=== PATIENT | female | born 1980 | race Caucasian/White ===

== ENCOUNTER → 2023-07-22 | Outpatient (CLI) | payer OTHER, SELFPAY ==
--- NOTE | 2023-07-22 09:56 | STEWCON_ITS ---
Reason For Study: CHEST PAIN, PALPS Stress Results Protocol: Hang Protocol WITH DEFINITY Maximum Predicted HR: 179 bpm Target HR: 152 bpm % Maximum Predicted HR: 94 % DurationHeart Rate Stage (mm:ss) (bpm) BP Comment BASELINE 85 132/82 STAGE 1 3:00 127 142/70 STAGE 2 3:00 144 150/82 STAGE 3 3:00 169 164/62INCREASED SOB RECOVERY 10 148/884 CC DEFINITY FOR ENTIRE TEST Stress Duration: 9:00 mm:ss Maximum Stress HR: 169 bpm Baseline Echocardiogram Findings The estimated ejection fraction is 65 %. Post stress EF is 70%. Stress Echo Wall motion Data Resting WM Intermediate WM Stress WM Resting Wall Motion Wall Motion Stress No regional wall motion No regional wall motion abnormalities noted. abnormalities noted. EKG Data The baseline ECG displays normal sinus rhythm. No significant ischemic changes. Symptoms with Stress The patient experinced No chest pain . ECHO/Stress Test Echo W/Contrast Interpretation Summary The estimated ejection fraction is 65 %. Exercise echo is negative for exercise-induced chest pain or EKG changes or ech ocardiographic changes of ischemia. Functional capacity is normal for age Ordering Physician: Maryana Jurado Referring Physician: Maryana Jurado Performed By: Luc Regalado RCS
== END | disposition home or self-care (01) ==
LOC: CVS 09:54
PROVIDERS: PCP Family Medicine; Referring Provider Family Medicine; Visit Provider Family Medicine
DX: R00.2 Palpitations (principal)
CPT/HCPCS: 93017; 93350; Q9957; A4216; C8928